=== PATIENT | male | born 1995 | race Caucasian/White ===

== ENCOUNTER 2020-05-12 17:21 | Emergency (ER) | payer OTHER ==
[~2020-05-12] VITALS: Ht 175.3 cm; Wt 72.6 kg
[2020-05-12 17:55] VITALS: BP 132/86
--- NOTE | 2020-05-12 18:14 | NUR ---
pt refused covid swab. explained risks and benefits still refused
== END 2020-05-12 18:57 ==
LOC: ER 17:21
DX: Z02.89 Encounter for other administrative examinations (principal)